=== PATIENT | male | born 1985 | race African-American/Black ===

== ENCOUNTER 2022-06-01 16:10 | Emergency (ER) | payer BC ==
[~2022-06-01 16:10] MED LIST: Iopamidol 300 61% 100 ML VIAL FS ONE
[2022-06-01] MEDS ORDERED: Morphine 4 MG/ML VIAL ONE ×2 (17:22→17:34)
[2022-06-01] MEDS ORDERED: Ondansetron PF 4 MG/2 ML Vial ONE (17:23)
[2022-06-01 17:38] LABS: #Basophils 0.1 10x3/uL (0.0-0.2); #Eosinphils 0.3 10x3/uL (0.0-0.5); #Monocytes 0.5 10x3/uL (0.0-1.1); #Neutrophils 4.1 10x3/uL (1.5-8.4); %Basophils 0.6 % (0.0-2.0); %Lymphocytes 39.3 % (18.0-47.0); %Monocytes 6.5 % (0.0-10.0); %Neutrophils 49.5 % (40.0-75.0); Hemoglobin 14.7 g/dL (13.5-17.5); Mean Corpuscular HGB CONC 33.7 g/dL (32.0-36.0); Mean Corpuscular Hemoglobin 28.5 pg (27.0-33.0); Mean Corpuscular Volume 84.7 fl (81.2-95.1); Mean Platelet Volume 10.6 fl (7.4-10.4); Platelet Count 179 10x3/uL (150-450); RBC Distribution Width 12.1 % (11.5-14.5); Red Blood Cell (RBC) Count 5.15 10x6/uL (4.32-5.72); White Blood Cell (WBC) Count 8.2 10x3/uL (3.5-10.5)
[2022-06-01 18:07] LABS: ALT (SGPT) 35 U/L (8-55); AST (SGOT) 18 U/L (5-34); Albumin 4.4 g/dL (3.5-5.0); Alkaline Phosphatase 80 U/L (40-110); Anion Gap 13 mmol/L (10-20); BUN (Urea Nitrogen) 11 mg/dL (8.9-20.6); Bilirubin, Total 0.6 mg/dL (0.2-1.2); Calc. Creatinine Clearance 0 mL/min (70-130); Calcium 9.6 mg/dL (7.8-10.44); Carbon Dioxide 25 mmol/L (22-29); Chloride 105 mmol/L (98-107); Estimated GFR 101; Globulin 3.6 g/dL (2.4-3.5); Glucose 82 mg/dL (70-105); Lipase 47 U/L (8-78); Potassium 3.8 mmol/L (3.5-5.1); Sodium 139 mmol/L (136-145)
[2022-06-01 18:52] LABS: Bilirubin Neg (Negative); Blood, Urine Negative (Negative); Clarity Clear (Clear); Glucose, Urine (Dipstick) Normal (Negative); Ketone, Urine Negative (Negative); Leukocyte Negative (Negative); Nitrite Negative (Negative); Protein, Urine (Dipstick) Negative (Neg-Trace); Urobilinogen Normal mg/dL (Less than 2); pH, Urine 6.5 (5.0-9.0)
[2022-06-01] MEDS ORDERED: Ketorolac Tromethamine 30 MG/ML VIAL ONE (19:00)
[2022-06-01 19:27] LABS: SARS-CoV-2 NAA Rapid Test Not Detected (NotDetected)
== END 2022-06-01 21:50 | disposition home or self-care (01) ==
LOC: CSHERS 16:10
DX: K52.9 Noninfective gastroenteritis and colitis, unspecified (principal); Z20.822 Contact with and (suspected) exposure to COVID-19; Z79.899 Other long term (current) drug therapy
CPT/HCPCS: 71045; 74177; 80053; 81003; 83605; 83690; 85025; 93005; 96374; 96375; J1885; J2270; J2405; Q9967

== ENCOUNTER 2022-07-29 06:51 | Day surgery (SDC) | payer BC ==
[2022-07-28 10:58] VITALS: BMI 41.9
[2022-07-29] MEDS ORDERED: Midazolam HCl 2 mg/2 ml Vial ONE (08:21)
[2022-07-29] MEDS ORDERED: Famotidine/PF 20 mg/2ml Vial ONE (08:21)
[2022-07-29] MEDS ORDERED: Rocuronium Bromide 10 MG/ML (10ML VIAL) ONE (08:55)
[2022-07-29] MEDS ORDERED: Lidocaine 1% PF 5 ML VIAL ONE (08:55)
[2022-07-29] MEDS ORDERED: PROPOFOL 20 ML ONE (08:55)
[2022-07-29] MEDS ORDERED: Fentanyl 100 MCG/2 ML VIAL ONE ×2 (08:55→11:01)
[2022-07-29] MEDS ORDERED: Bupivacaine PF 0.5% 30 ML VIAL ONE (09:03)
[2022-07-29] MEDS ORDERED: Neomycin-Polymyxin 1 ML AMP ONE (09:04)
[2022-07-29] MEDS ORDERED: CEFAZOLIN 1 GM VIAL ONE (09:04)
[2022-07-29] MEDS ORDERED: Esmolol 100 MG/10 ML VIAL ONE (09:30)
[2022-07-29] MEDS ORDERED: Dexamethasone 20 MG/5 ML VIAL ONE (10:28)
[2022-07-29] MEDS ORDERED: Ondansetron PF 4 MG/2 ML Vial ONE (10:28)
[2022-07-29] MEDS ORDERED: Glycopyrrolate 0.2 MG/ML 5 ML SYRINGE ONE (10:30)
[2022-07-29] MEDS ORDERED: Ketorolac Tromethamine 30 MG/ML VIAL ONE (10:30)
[2022-07-29] MEDS ORDERED: HYDROcodone/Acetaminophen 5/325 mg Tablet ONE (11:37)
[2022-07-29] MEDS ORDERED: Non-Formulary Medication 1 EACH PO PRN (11:53)
[2022-07-29] MEDS ORDERED: Ondansetron HCl/PF 4 MG/2 ML Vial IVP PRN (12:00)
[2022-07-29] MEDS ORDERED: Promethazine HCl 25 MG/ML VIAL IM/IV PRN (12:00)
== END 2022-07-29 12:25 | disposition home or self-care (01) ==
LOC: CSHSDC 06:51
PROVIDERS: ATTEND Podiatrist Foot & Ankle Surgery
PROC: 0QBM0ZZ Excision of Left Tarsal, Open Approach (ICD-10-PCS; principal; 2022-07-29)
DX: M77.32 Calcaneal spur, left foot (principal); Z79.899 Other long term (current) drug therapy
CPT/HCPCS: C1713; J0690; J1100; J1885; J2250; J2405; J2704; J3010; S0020; S0028